=== PATIENT | female | born 1955 | race Two or more races ===

== ENCOUNTER 2019-10-07 19:31 | Emergency (ER) | payer MEDICAID, OTHER ==
[~2019-10-07] VITALS: Ht 165.1 cm; Wt 67.1 kg
[2019-10-07] MEDS ORDERED: cefTRIAXone SOD 1,000 MG VL ONE (22:36)
[2019-10-07] MEDS ORDERED: IBUPROFEN 600 MG TAB PO ONE ×2 (22:36→22:45)
[2019-10-07] MEDS ORDERED: DexAMETHasone SOD PHOS 10MG/1ML VIAL INJ ONE (22:36)
[2019-10-07] MEDS ORDERED: DexAMETHasone SOD PHOS 10MG/1ML VIAL INJ IM ONE (22:45)
[2019-10-07] MEDS ORDERED: cefTRIAXone SOD 1,000 MG VL IM ONE (22:45)
[2019-10-07 22:51] VITALS: BP 115/61
== END 2019-10-07 22:55 | disposition home or self-care (01) ==
LOC: ER 19:32
DX: J06.9 Acute upper respiratory infection, unspecified (principal); R50.9 Fever, unspecified
CPT/HCPCS: 96372; 99283; J0696; J1100

== ENCOUNTER → 2022-08-01 | Outpatient (CLI) | payer MEDICARE, MEDICAID | END | disposition home or self-care (01) | LOC: Rad HDHVI 10:01 | PROVIDERS: ATTEND Internal Medicine Cardiovascular Disease | DX: M48.07 Spinal stenosis, lumbosacral region (principal); M51.37 Other intervertebral disc degeneration, lumbosacral region; M48.05 Spinal stenosis, thoracolumbar region; M51.35 Other intervertebral disc degeneration, thoracolumbar region; M41.86 Other forms of scoliosis, lumbar region; M47.817 Spondylosis without myelopathy or radiculopathy, lumbosacral region; M47.815 Spondylosis without myelopathy or radiculopathy, thoracolumbar region; D73.89 Other diseases of spleen | CPT/HCPCS: 72131; 74176 ==

== ENCOUNTER → 2022-11-07 | Outpatient (CLI) | payer MEDICARE, MEDICAID ==
[~2022-11-07] MED LIST: cefTRIAXone 1GM/50ML D5W 50 ML IV ONE; methylPREDNISolone SOD SUCC 125 MG/2 ML VL IV ONE; methylPREDNISolone SOD SUCC 40 MG/ML VL ONE
[2022-11-07 14:36] VITALS: BP 122/82
[2022-11-07 15:35] VITALS: BP 130/82
== END | disposition home or self-care (01) ==
LOC: Rad HDHVI 14:37
PROVIDERS: ATTEND Internal Medicine Cardiovascular Disease
DX: J06.9 Acute upper respiratory infection, unspecified (principal)
CPT/HCPCS: 71046; 96365; 96375; G0463; J0696; J2920

== ENCOUNTER → 2022-12-06 | Outpatient (CLI) | payer MEDICARE, MEDICAID | END | disposition home or self-care (01) | LOC: Rad HDHVI 13:03 | PROVIDERS: ATTEND Internal Medicine Cardiovascular Disease | DX: I10 Essential (primary) hypertension (principal); M79.604 Pain in right leg | CPT/HCPCS: 93926; 93971 ==

== ENCOUNTER → 2025-01-28 | Outpatient (CLI) | payer MEDICARE, MEDICAID | END | disposition home or self-care (01) | LOC: Rad HDHVI 13:31 | PROVIDERS: ATTEND Internal Medicine Cardiovascular Disease | DX: I07.1 Rheumatic tricuspid insufficiency (principal); I10 Essential (primary) hypertension; M25.561 Pain in right knee | CPT/HCPCS: 93306; 93880; 93970 ==

== ENCOUNTER → 2025-01-30 | Outpatient (CLI) | payer MEDICARE, MEDICAID ==
[~2025-01-30] VITALS: Ht 165.1 cm; Wt 59.0 kg
[~2025-01-30] MED LIST changes: +ADENOSINE 50 MG in GIVE UN-DILUTED 0 ML IV ONE; +ADENOSINE 90 MG/30 ML INJ IV ONE; -cefTRIAXone 1GM/50ML D5W 50 ML IV ONE; -methylPREDNISolone SOD SUCC 125 MG/2 ML VL IV ONE; -methylPREDNISolone SOD SUCC 40 MG/ML VL ONE
== END | disposition home or self-care (01) ==
LOC: Rad HDHVI 09:12
PROVIDERS: ATTEND Internal Medicine Cardiovascular Disease
DX: I49.1 Atrial premature depolarization (principal); I49.3 Ventricular premature depolarization; R00.1 Bradycardia, unspecified; R07.89 Other chest pain; I10 Essential (primary) hypertension; E78.00 Pure hypercholesterolemia, unspecified; R06.02 Shortness of breath; Z82.49 Family history of ischemic heart disease and other diseases of the circulatory system
CPT/HCPCS: 78452; 93017; A9500; J0153